=== PATIENT | female | born 1980 ===

== ENCOUNTER → 2018-10-28 | Outpatient (CLI) | payer OTHER ==
[2018-10-28 13:30] VITALS: BP 149/93; PULSE 95; RESP 18
--- NOTE | 2018-10-28 14:02 | P.PAINCN ---
History of Present Illness - Reason for Consult Consult date: 10/28/18 - History of Present Illness This is initial consultation visit for this 38 years old female, with a chronic history of severe neck pain, with radiation to the left upper extremity associated with numbness and tingling sensation, she reported that she had traumatic brain injury as a child, and she had long standing history of severe neck pain and headache, her symptoms increase with any neck movement, with occasional exacerbation, she feels sharp numbness and tingling sensation radiating from the left side of the neck towards the left upper extremity, she denies any motor or sensory deficit, she denies any change in the bowel movement.or Urination, he done physical therapy without any significant improvement, intensity of the pain fluctuates between 11/24-02/24 Past Medical History Past Medical History: Fibromyalgia, Hyperlipidemia, Memory Impairment, Seizure Disorder Additional Past Medical History / Comment(s): cervical cancer History of Any Multi-Drug Resistant Organisms: None Reported Past Surgical History: Tubal Ligation Additional Past Surgical History / Comment(s): lt ankle cyst/tumor removed Past Anesthesia/Blood Transfusion Reactions: No Reported Reaction Past Psychological History: Anxiety, Bipolar Smoking Status: Current every day smoker - Past Family History Mother Family Medical History: Cancer, Diabetes Mellitus Additional Family Medical History / Comment(s): bipolar/depression/norcolepsy/ Father Family Medical History: Cancer, Hyperlipidemia, Hypertension Additional Family Medical History / Comment(s): bipolar Medications and Allergies Home Medications Medication Instructions Recorded Confirmed Type Gabapentin [Neurontin] 800 mg PO TID 10/28/18 10/28/18 History Ibuprofen [Motrin] 800 mg pe PO TID 10/28/18 10/28/18 History clonazePAM [KlonoPIN] 1 mg PO BID 10/28/18 10/28/18 History lamoTRIgine [LaMICtal] 100 mg PO BID 10/28/18 10/28/18 History Allergies Allergy/AdvReac Type Severity Reaction Status Date / Time Sulfa (Sulfonamide Allergy Rash/Hives Verified 10/28/18 13:16 Antibiotics) toilet paper AdvReac Swelling Uncoded 10/28/18 13:16 Physical Exam Vitals: Vital Signs Pulse Resp BP Pulse Ox 10/28/18 13:21 95 18 149/93 96 Intake and Output 10/27/18 10/28/18 10/28/18 22:59 06:59 14:59 Other: Weight 110.677 kg Social history :smoker , NO ETOH , NO Illegal drugs use . Review of Systems : - Constitutional : no chills , no fever , no night sweats , - Ears : no ear discharge , no change in hearing -Nose, Mouth ,Throat ; no bleeding gums, no sore throat , no epistaxis , -Cardiovascular : Denies chest pain, , no orthopnea , no palpitation -Respiratory : Denies cough , no dyspnea , no hemoptysis -Gastrointestinal : no change in bowel habits , no coffee-ground emesis . -Genitourinary : No hematuria , no discharge , no incontinence, -Musculoskeletal : No gait dysfunction , report neck pain , - Neurological : , report headache -Psychatric : no suicidal ideation no hallucination - Endocrine : no cold intolerence , no polyuria , no polydypsia , -Hematologic : no easy bleeding , no easy brusing , -Allergic / immm : no angioedema , no wheezing ,no allergic rhinitis -Integumentary : no brttle nails , no change hair / nails , no foot/leg ulcers . Physical Examinations : -Constitutional : Cooperative , not in acute distress . -HEENT : nech ; supple , no Lymphadenopathy , no Thyromegaly , :eyes : no icterus, no photophobia . ENT : normal oropharynx , no Thrush - Respiratory : Chest clear to auscultations Bilaterally , no wheezing . - Cardiovascular : regular rate and rhythem , S1 , S2 , no S3 , no S4. - Gastrointestina l: abdomen soft no tenderness , no organomegally . - Genitourinary : Defferred . -Integumentary : No cellulitis , no ulcers , normal skin turgor , no cyanotic . - neurologic : Cranial nerve II to XII intact , no focal neurological deffecit -psychatric : alert , oriented X 3 , appropriate affect , intact judgment and insight . -Lymphatic : no Lymphadenopathy. - musculoskeltal: normal gait Cervical Spine motor stregnth in the deltoid and biceps, normal right side , normal Left side motor stregnth biceps and the wrist extensors normal right side ,normal left side . motor stregnth in the triceps muscle . normal Right side , normal Left side deep tendon reflexes normal at the biceps , normal at Brachioradialis , normal at triceps. Spurling test = positive left-sided Neck distraction test= negative Childers sign= positive positive cervical facet loading test . Left upper extremity external rotation associated with pain Lumber spine moter stegnth lower extremities ,thigh and legs 5/5 Right side , 5/5 Left side Results Comments: Computed tomography scan of the cervical spine done 10/14/2018 at [facility] C5 6 disc protrusion and facet arthroplasty at C6 7 foraminal narrowing and disc protrusion and facet arthropathy Assessment and Plan Plan: Assessment and plan= cervical radiculopathy. Cervical spondylosis with cervical facet arthropathy. Cervicogenic headache. Patient will be good candidate to have cervical epidural steroid injection under fluoroscopy guidance at C7-T1 level(left paramedian approach ) , and if she continued to have neck pain after the epidural steroid injection then would consider doing diagnostic medial branch block cervical area C4, C5, C6, and plan discussed with the patient she agreed with the preceding Time with Patient: Greater than 30 PQRS Measure Charge Sheet Measure #130: Documentation of Current Meds in Medical Chart: Patient's medications documented in chart Measure #226: Tobacco Use: Screen & Cessation Intervention: Pt screened for tobacco use AND intervention given Measure #111: Pneumonia Vaccination: Pneumococcal vaccine NOT administered or previously given Measure #47: Advance Care Plan: Advance care planning discussed & documented, pt chose/unable to give Measure #412: Opioid Treatment Agreement: No documentation of signed opioid treatment agreement Measure #408: Opioid Therapy Follow-up Evaluation: Patient had NO f/u eval minimum every 3 months during opioid therapy Measure #317: Preventitive Care & Scrn High Bld Press & F/U: Pre-hypertensive or hypertensive BP documented, pt will f/u with PCP Measure #128: Body Mass Index (BMI) Screening & Follow-up: BMI documented ABOVE normal parameters - f/u documented Measure #131: Pain Assessment & Follow-up: Pain positive & plan documented, Follow-up scheduled Measure #431: Unhealthy Alcohol Use Preventative Care & Scrn: Patient not identified as an unhealthy alcohol user PQRS Narrative: Smoking Status Current every day smoker Do You Want the Pneumonia No Vaccine AT THIS TIME? Blood Pressure 149/93 Pain Intensity [Bilateral Neck 6 ] Scale Used Numeric (1 - 10) Hx Alcohol Use (MH) No Home Medications: Ambulatory Orders Gabapentin [Neurontin] 800 mg PO TID 10/28/18 Ibuprofen [Motrin] 800 mg pe PO TID 10/28/18 clonazePAM [KlonoPIN] 1 mg PO BID 10/28/18 lamoTRIgine [LaMICtal] 100 mg PO BID 10/28/18
== END | disposition home or self-care (01) ==
LOC: EEVIPCON 13:00 → PNWHC3 13:04
PROVIDERS: ATTEND Specialist
DX: G89.29 Other chronic pain (principal); M47.22 Other spondylosis with radiculopathy, cervical region; M46.92 Unspecified inflammatory spondylopathy, cervical region; F17.200 Nicotine dependence, unspecified, uncomplicated; Z79.899 Other long term (current) drug therapy; Z88.2 Allergy status to sulfonamides
CPT/HCPCS: 99201